=== PATIENT | female | born 1995 | race Caucasian/White ===

== ENCOUNTER → 2016-07-12 | Outpatient (CLI) | payer OTHER ==
[2016-07-12 14:18] LABS: AMNISURE NEGATIVE (NEGATIVE)
[2016-07-12 14:26] LABS: AMNI OBC PASS
[2016-07-12 14:27] LABS: AMNI LOT 554010215
== END | disposition home or self-care (01) ==
LOC: LDOP 11:21
PROVIDERS: ATTEND Student in an Organized Health Care Education/Training Program
DX: O26.893 Other specified pregnancy related conditions, third trimester (principal); R10.9 Unspecified abdominal pain; O42.913 Preterm premature rupture of membranes, unspecified as to length of time between rupture and onset of labor, third trimester; Z3A.31 31 weeks gestation of pregnancy
CPT/HCPCS: 36415; 59025; 76815; 82731; 84112; 87081; 89060; 99211; G0463; Q0114

== ENCOUNTER 2016-09-09 04:31 | Inpatient (IN) | payer OTHER ==
[~2016-09-09] VITALS: Ht 167.6 cm; Wt 80.5 kg
[2016-09-09] MEDS ORDERED: OXYTOCIN 30U/ 0.9% NaCL 500ML 500 ML IV ONE (04:55)
[2016-09-09] MEDS: D5%-LACTATED RINGERS 1,000 ML IV SCH ×2 (04:55→12:55)
[2016-09-09] MEDS ORDERED: TERBUTALINE 1 MG/ML, 1ML SQ PRN (05:00)
[2016-09-09] MEDS ORDERED: ONDANSETRON 2MG/ML, 2ML IVPush PRN (05:00)
[2016-09-09] MEDS ORDERED: FENTANYL PF 100 MCG/2ML IV PRN (05:00)
[2016-09-09] MEDS ORDERED: FENTANYL PF 100 MCG/2ML ONE ×2 (05:15→06:26)
[2016-09-09] MEDS: FENTANYL PF 100 MCG/2ML IVPush PRN ×2 (05:19→06:29)
[2016-09-09] MEDS: LACTATED RINGERS 1,000 ML IV SCH ×4 (05:55→17:24)
[2016-09-09] MEDS ORDERED: FENTANYL/BUPIV./NS/PF 250 ML EPIDCONT ONE (07:14)
[2016-09-09] MEDS ORDERED: LIDOCAINE/PF 1.5%-EPI 1:200K, 30ML ONE (07:14)
[2016-09-09] MEDS ORDERED: FENTANYL/BUPIV./NS/PF 250 ML EPIDCONT SCH (09:24)
[2016-09-09] MEDS ORDERED: LACTATED RINGERS 1,000 ML IVBOLUS PRN (09:30)
[2016-09-09] MEDS ORDERED: NALOXONE 0.4 MG/ML, 1ML IVPush PRN (09:30)
[2016-09-09] MEDS ORDERED: EPHEDRINE 50 MG/ML, 1ML IVPush PRN (09:30)
[2016-09-09] MEDS ORDERED: MISOPROSTOL 200 MCG TABLET ONE (12:21)
[2016-09-09] MEDS ORDERED: OXYTOCIN 30U/ 0.9% NaCL 500ML 500 ML ONE (12:21)
[2016-09-09] MEDS ORDERED: LIDOCAINE 1%, 20ML ONE (12:21)
[2016-09-09] MEDS: OXYTOCIN 30U/ 0.9% NaCL 500ML 500 ML IV SCH ×2 (13:42→23:42)
[2016-09-09] MEDS ORDERED: OXYcodone/APAP 5/325MG TABLET ONE (13:54)
[2016-09-09] MEDS ORDERED: IBUPROFEN 600 MG TABLET ONE (13:54)
[2016-09-09] MEDS: IBUPROFEN 600 MG TABLET PO PRN (13:56)
[2016-09-09] MEDS ORDERED: METHYLERGONOVINE 0.2 MG/ML IM PRN (14:00)
[2016-09-09] MEDS ORDERED: ONDANSETRON 2MG/ML, 2ML IV PRN (14:00)
[2016-09-09] MEDS ORDERED: HYDROcodone/APAP 5/325 TABLET PO PRN ×2 (14:00)
[2016-09-09] MEDS ORDERED: MISOPROSTOL 200 MCG TABLET PO PRN (14:00)
[2016-09-09] MEDS ORDERED: ACETAMINOPHEN 325 MG TABLET PO PRN (14:00)
[2016-09-09 19:47] VITALS: BP 110/71
[2016-09-10 00:11] VITALS: BP 111/71
[2016-09-10] MEDS: IBUPROFEN 600 MG TABLET PO PRN ×4 (00:21→19:20)
[2016-09-10 07:01] VITALS: BP 98/63
[2016-09-10] MEDS: PRENATAL VIT/IRON/FA 1 EACH TABLET PO SCH (09:00)
[2016-09-10] MEDS: OXYTOCIN 30U/ 0.9% NaCL 500ML 500 ML IV SCH ×2 (09:42→19:42)
[2016-09-10] MEDS: DOCUSATE 100 MG CAPSULE PO PRN ×2 (09:45→19:20)
[2016-09-10] MEDS ORDERED: ONDANSETRON 4 MG TABLET PO PRN ×2 (10:30→11:00)
[2016-09-10] MEDS ORDERED: ZOFRAN MC SCH (10:30)
[2016-09-10 13:11] VITALS: BP 110/74
[2016-09-10 19:25] VITALS: BP 116/75
[2016-09-11] MEDS ORDERED: IBUP-1222 PO (02:31)
[2016-09-11] MEDS ORDERED: DOCU-30 PO (02:33)
[2016-09-11] MEDS ORDERED: FERR324T5 PO (02:40)
[2016-09-11] MEDS: IBUPROFEN 600 MG TABLET PO PRN ×3 (04:06→18:04)
[2016-09-11] MEDS: OXYTOCIN 30U/ 0.9% NaCL 500ML 500 ML IV SCH (05:42)
[2016-09-11 08:07] VITALS: BP 100/61
[2016-09-11] MEDS: PRENATAL VIT/IRON/FA 1 EACH TABLET PO SCH (11:47)
[2016-09-11] MEDS: DOCUSATE 100 MG CAPSULE PO PRN (11:47)
== END 2016-09-11 18:15 | disposition home or self-care (01) | DRG 775 ==
LOC: LDOP 04:31 → LDIP 04:53 → 2NW 16:55
PROVIDERS: ADMIT Obstetrics & Gynecology; ATTEND Obstetrics & Gynecology
PROC: 10E0XZZ Delivery of Products of Conception, External Approach (ICD-10-PCS; principal; 2016-09-09)
PROC: 3E0R3CZ (ICD-10-PCS; 2016-09-09)
PROC: 00HU33Z Insertion of Infusion Device into Spinal Canal, Percutaneous Approach (ICD-10-PCS; 2016-09-09)
PROC: 0HQ9XZZ Repair Perineum Skin, External Approach (ICD-10-PCS; 2016-09-09)
DX: O76 Abnormality in fetal heart rate and rhythm complicating labor and delivery (principal); Z37.0 Single live birth; O99.02 Anemia complicating childbirth; Z3A.39 39 weeks gestation of pregnancy; Z23 Encounter for immunization; Z91.040 Latex allergy status; Z91.018 Allergy to other foods; Z90.89 Acquired absence of other organs; F40.8 Other phobic anxiety disorders; O70.0 First degree perineal laceration during delivery
CPT/HCPCS: 36415; 85025; 86850; 86870; 86880; 86900; 86922; 86923; 89060; J2405; J3010; Q0162; J2590; J7120; Q0114